=== PATIENT | female | born 1980 | race Caucasian/White ===

== ENCOUNTER → 2023-05-07 | Emergency (ER) | payer OTHER, SELFPAY ==
--- NOTE | 2023-05-07 22:07 | RAD REPORT ---
EXAM DESCRIPTION: RAD - Femur Left - 05/07/2023 9:45 pm CLINICAL HISTORY: PAIN COMPARISON: No comparisons TECHNIQUE: Left femur, 2 views. FINDINGS: No fracture is identified. There is no dislocation or periosteal reaction noted. No acute or suspicious bony finding. IMPRESSION: Negative left femur examination.
--- NOTE | 2023-05-07 23:16 | ER ---
Nurse's Notes [facility] Name: Luda Perdomo Age: 42 yrs Sex: Female : 1980 Arrival Date: 05/07/2023 Time: 20:20 Bed 12 Private MD: Diagnosis: Pain in left leg;Fall on same level from slipping, tripping and stumbling without subsequent striking against object Presentation: 05/07 20:57 Chief complaint: Patient states: fell while walking dogs today around 1730 hit concrete km8 and hurting left thigh; abrasions noted to left elbow and left lower leg. Coronavirus screen: Client denies travel out of the [place] in the last 14 days. Ebola Screen: No symptoms or risks identified at this time. Initial Sepsis Screen: Does the patient meet any 2 criteria? HR > 90 bpm. No. Patient's initial sepsis screen is negative. Does the patient have a suspected source of infection? No. Patient's initial sepsis screen is negative. Risk Assessment: Do you want to hurt yourself or someone else? Patient reports no desire to harm self or others. Onset of symptoms was May 07, 2023 at 17:30. 20:57 Method Of Arrival: Ambulatory km8 20:57 Acuity: DOMINIQUE 3 km8 Triage Assessment: 21:00 General: Appears in no apparent distress. uncomfortable, Behavior is calm, cooperative, km8 appropriate for age. Pain: Complains of pain in left thigh Pain currently is 8 out of 10 on a pain scale. EENT: No signs and/or symptoms were reported regarding the EENT system. Neuro: Level of Consciousness is awake, alert, obeys commands, Oriented to person, place, time, situation. Cardiovascular: Denies chest pain, shortness of breath. Respiratory: Airway is patent Respiratory effort is even, unlabored, Respiratory pattern is regular, symmetrical. GI: No signs and/or symptoms were reported involving the gastrointestinal system. : No signs and/or symptoms were reported regarding the genitourinary system. Derm: Skin is intact, Skin is dry, Skin is pink, warm \T\ dry. normal, Skin temperature is warm abrasions to left elbow and left lower leg. Musculoskeletal: Circulation, motion, and sensation intact. Reports pain in left leg. 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 Historical: - Allergies: 21:00 No Known Allergies; km8 - Home Meds: 21:00 None [Active]; km8 - PMHx: 21:00 None; 8 - PSHx: 21:00 tubal ligation; km8 - Immunization history:: Client reports having NOT received the Covid vaccine. Flu vaccine is not up to date. - Social history:: Smoking status: Patient reports the use of cigarette tobacco products, smokes one pack cigarettes per day. Patient uses alcohol, occasionally. street drugs, marijuana. Screenin:15 [facility] ED Fall Risk Assessment (Adult) History of falling in the last 3 months, vc1 including since admission No falls in past 3 months (0 pts) Confusion or Disorientation No (0 pts) Intoxicated or Sedated No (0 pts) Impaired Gait Yes (1 pt) Mobility Assist Device Used No (0 pt) Altered Elimination No (0 pt) Score/Fall Risk Level 0 - 2 = Low Risk Oriented to surroundings, Maintained a safe environment, Educated pt \T\ family on fall prevention, incl call for assistance when getting out of bed. Abuse screen: Denies threats or abuse. Nutritional screening: No deficits noted. Tuberculosis screening: No symptoms or risk factors identified. Assessment: 20:51 General: name called in waiting room; no answer x2. [facility] 23:21 Reassessment: No changes from previously documented assessment. Patient and/or family vc1 updated on plan of care and expected duration. Pain level reassessed. Patient is alert, oriented x 3, equal unlabored respirations, skin warm/dry/pink. Pt did not want to wait on discharge paperwork and left before signing. Vital Signs: 20:57 BP 127 / 100; Pulse 105; Resp 18; Temp 97.4(IR); Pulse Ox 100% on R/A; Weight 65.77 kg 8 (R); Height 5 ft. 9 in. (R); Pain 8/10; 20:57 Body Mass Index 21.41 (65.77 kg, 175.26 cm) [facility] 20:57 Pain Scale: Adult [facility] ED Course: 20:30 Patient arrived in ED. ag3 20:31 [facility]-C [facility] kb 20:31 Cordell Yang MD is Attending Physician. kb 20:52 Flori Awan FNP-C is [facility] kb 20:52 Cordell Yang MD is Attending Physician. kb 21:00 Triage completed. km8 21:00 Arm band placed on right wrist. km8 21:46 Femur Left XRAY In Process Unspecified. EDMS 23:21 Medina Vu, RN is Primary Nurse. vc1 23:22 No provider procedures requiring assistance completed. Patient did not have IV access vc1 during this emergency room visit. Administered Medications: No medications were administered Medication: 23:22 VIS not applicable for this client. vc1 Outcome: 23:16 Discharge ordered by . kb 23:22 Discharged to home ambulatory, vc1 23:22 Condition: good 23:22 Discharge instructions given to patient, Instructed on discharge instructions, follow up and referral plans. Demonstrated understanding of instructions, follow-up care, 23:22 Patient left the ED. vc1 Signatures: Dispatcher [employer] EDKY Flori Awan FNP-C FNP-CkGale Hernandez ag3 Medina Vu, RN RN vc1 Galilea Lizama RN RN km8
--- NOTE | 2023-05-07 23:17 | EDPHYS ---
Physician Documentation [facility] Name: Luda Perdomo Age: 42 yrs Sex: Female : 1980 Arrival Date: 05/07/2023 Time: 20:20 Bed 12 Private MD: ED Physician Cordell Yang HPI: 05/07 23:19 This 42 yrs old Female presents to ER via Ambulatory with complaints of Leg Pain. kb 23:19 Pt reports she was walking her 2 big dogs and they pulled her down. Reports pain to kb left lateral thigh and abrasion to left elbow. 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 Flu vaccine is not up to date. - Social history:: Smoking status: Patient reports the use of cigarette tobacco products, smokes one pack cigarettes per day. Patient uses alcohol, occasionally. street drugs, marijuana. ROS: 23:16 Constitutional: Negative for fever, chills, and weight loss, kb 23:16 MS/extremity: Positive for pain, of the left quadriceps, 23:16 Skin: Positive for abrasion(s), of the left elbow and left leg, 23:16 All other systems are negative, Exam: 23:16 Constitutional: This is a well developed, well nourished patient who is awake, alert, kb and in no acute distress. Head/Face: Normocephalic, atraumatic. ENT: Moist Mucous membranes Cardiovascular: Regular rate Respiratory: Respirations even and unlabored. No increased work of breathing. Talking in full sentences Abdomen/GI: Soft, non-tender. No distention Neuro: Awake and alert, GCS 15, oriented to person, place, time, and situation. Moves all extremities. Normal gait. 23:16 Musculoskeletal/extremity: Extremities: grossly normal except: noted in the left quadriceps: pain, tenderness, ROM: intact in all extremities, Circulation is intact in all extremities. Sensation intact. Weight bearing: able to fully bear weight, 23:16 Skin: injury, abrasion(s), small abrasion noted, of the left elbow and left leg, Vital Signs: 20:57 BP 127 / 100; Pulse 105; Resp 18; Temp 97.4(IR); Pulse Ox 100% on R/A; Weight 65.77 kg 8 (R); Height 5 ft. 9 in. (R); Pain 8/10; 20:57 Body Mass Index 21.41 (65.77 kg, 175.26 cm) [facility] 20:57 Pain Scale: Adult km8 MDM: 20:36 Patient medically screened. kb 23:18 Differential diagnosis: contusion, fracture, abrasion. Data reviewed: vital signs, kb nurses notes. Counseling: I had a detailed discussion with the patient and/or guardian regarding the historical points, exam findings, and any diagnostic results supporting the discharge/admit diagnosis, radiology results, the need for outpatient follow up, a family practitioner, to return to the emergency department if symptoms worsen or persist or if there are any questions or concerns that arise at home. 05/07 20:57 Order name: Femur Left XRAY; Complete Time: 22:08 kb Administered Medications: No medications were administered Disposition Summary: 05/07/23 23:16 Discharge Ordered Notes: Location: Home kb Condition: Stable kb Diagnosis - Pain in left leg kb - Fall on same level from slipping, tripping and stumbling without subsequent kb striking against object Discharge Instructions: - Discharge Summary Sheet kb - Musculoskeletal Pain kb Forms: - Medication Reconciliation Form kb - Thank You Letter kb - Antibiotic Education kb - Prescription Opioid Use kb - Patient Portal Instructions kb - Leadership Thank You Letter kb Signatures: Dispatcher [employer] Flori Cagle, RACHEL KHAN-Galilea Garcia, RN RN km8
[2023-05-08 02:12] VITALS: BP 127/100; TEMP 97.4; O2SAT 100
== END ==
LOC: ER 20:20
DX: M79.605 Pain in left leg (principal); W01.0XXA Fall on same level from slipping, tripping and stumbling without subsequent striking against object, initial encounter
CPT/HCPCS: 99282

== ENCOUNTER 2023-12-28 16:22 | Emergency (ER) | payer SELFPAY ==
--- NOTE | 2023-12-28 19:07 | RAD REPORT ---
EXAM DESCRIPTION: Shoulder Right 2 View - 12/28/2023 5:31 pm CLINICAL HISTORY: PAIN COMPARISON: No comparisons TECHNIQUE: Internal and external rotation views of the right shoulder were obtained. FINDINGS: There is no fracture or dislocation. AC joint is normal in appearance. No acute or suspici ous findings. IMPRESSION: Negative two-view right shoulder examination.
--- NOTE | 2023-12-28 19:10 | EDPHYS ---
Physician Documentation [facility] Name: Luda Perdomo Age: 43 yrs Sex: Female : 1980 Arrival Date: 12/28/2023 Time: 16:22 Bed DX3 Private MD: ED Physician Brice Medina HPI: 12/27 17:03 This 43 yrs old Female presents to ER via Ambulatory with complaints of Fall Injury, sb4 Shoulder Pain. 17:03 Details of fall: The patient fell from an upright position, while walking. Onset: The sb4 symptoms/episode began/occurred last night. Associated injuries: The patient sustained anterior aspect of right shoulder. The patient has not experienced similar symptoms in the past. The patient has not recently seen a physician. 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 - Infectious Disease History:: Denies. - Social history:: Smoking status: Patient reports the use of cigarette tobacco products, smokes one-half pack cigarettes per day. ROS: 17:03 Constitutional: Negative for fever, chills, and weight loss, sb4 17:03 MS/extremity: Positive for injury or acute deformity, decreased range of motion, pain, tenderness, of the anterior aspect of right shoulder, 17:03 All other systems are negative, Exam: 17:03 Constitutional: This is a well developed, well nourished patient who is awake, alert, sb4 and in no acute distress. Head/Face: Normocephalic, atraumatic. Eyes: Extra-ocular motions intact. Periorbital areas with no swelling, redness, or edema. ENT: Mucous membranes moist. Skin: Warm, dry with normal turgor. Normal color with no rashes, no lesions, and no evidence of cellulitis. 17:03 Musculoskeletal/extremity: ROM: limited active range of motion due to pain, limited passive range of motion due to pain, Circulation is intact in all extremities. Pulses: are normal with no appreciated deficits, Perfusion: the extremity is normally perfused throughout, Sensation intact. Vital Signs: 16:41 BP 132 / 79; Pulse 82; Resp 16; Temp 98.7; Pulse Ox 96% ; db MDM: 16:27 Patient medically screened. sb4 19:08 Data reviewed: vital signs, nurses notes, radiologic studies, and as a result, I will sb4 discharge patient. Counseling: I had a detailed discussion with the patient and/or guardian regarding the historical points, exam findings, and any diagnostic results supporting the discharge/admit diagnosis, radiology results, to return to the emergency department if symptoms worsen or persist or if there are any questions or concerns that arise at home. 12/27 16:44 Order name: Shoulder Right (2 View) XRAY; Complete Time: 19:08 sb4 12/27 16:44 Order name: Shoulder Immobilizer; Complete Time: 20:07 sb4 Administered Medications: 20:07 Drug: Hydrocodone-Acetaminophen PO (7.5 mg-325 mg) 1 tabs PO once Route: PO; vc1 20:07 Follow up: Response: Medication administered at discharge. vc1 Disposition Summary: 12/28/23 19:09 Discharge Ordered Notes: Location: Home sb4 Problem: new sb4 Symptoms: have improved sb4 Condition: Stable sb4 Diagnosis - Sprain of right acromioclavicular joint, initial encounter sb4 Followup: sb4 - With: Austin Gann MD - When: As needed - Reason: Recheck today's complaints, Re-evaluation by your physician Discharge Instructions: - Discharge Summary Sheet sb4 - Shoulder Sprain sb4 Forms: - Work release form sb4 - Patient Portal Instructions sb4 - Leadership Thank You Letter sb4 Prescriptions: - meloxicam 7.5 mg Oral tablet - take 1 tablet ORAL route daily; 14 tablet; Refills: 0, Product Selection sb4 Permitted Signatures: [facility] EDMedina Worthy RN RN vc1 Ann Solaon RN RN Geeta Fitzpatrick PA-C PA-C sb4 Corrections: (The following items were deleted from the chart) 16:44 16:44 Shoulder Right 2 View+[email or web address] ordered. EDMS EDMS
--- NOTE | 2023-12-28 19:10 | ER ---
Nurse's Notes [facility] Name: Luda Perdomo Age: 43 yrs Sex: Female : 1980 Arrival Date: 12/28/2023 Time: 16:22 Bed DX3 Private MD: Diagnosis: Sprain of right acromioclavicular joint, initial encounter Presentation: 12/27 16:41 Chief complaint: Patient states: LAST NIGHT STATES WAS WALKING DOG AND DOG RAN OFF AND db PULLED LEFT ARM. STATES SHOULDER IS STIFF UNABLE TO MOVE UP AND DOWN. COMPLAINS OF TINGLING IN WRIST. Coronavirus screen: Client denies travel out of the [place] in the last 14 days. At this time, the client does not indicate any symptoms associated with coronavirus-19. Ebola Screen: Patient negative for fever greater than or equal to 101.5 degrees Fahrenheit, and additional compatible Ebola Virus Disease symptoms Patient denies exposure to infectious person. Patient denies travel to an Ebola-affected area in the 21 days before illness onset. No symptoms or risks identified at this time. 16:41 Method Of Arrival: Ambulatory db 20:10 Initial Sepsis Screen: Does the patient meet any 2 criteria? No. Patient's initial vc1 sepsis screen is negative. Does the patient have a suspected source of infection? No. Patient's initial sepsis screen is negative. Risk Assessment: Do you want to hurt yourself or someone else?. Onset of symptoms was December 28, 2023. 20:10 Acuity: DOMINIQUE 3 vc1 Triage Assessment: 16:43 General: Appears in no apparent distress. comfortable, Behavior is calm, cooperative. db Pain: Complains of pain in right arm. Neuro: Level of Consciousness is awake, alert, obeys commands, Oriented to person, place, time, situation. 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 - Infectious Disease History:: Denies. - Social history:: Smoking status: Patient reports the use of cigarette tobacco products, smokes one-half pack cigarettes per day. Screenin:07 [facility] ED Fall Risk Assessment (Adult) History of falling in the last 3 months, vc1 including since admission Yes- single mechanical fall (1 pt) Confusion or Disorientation No (0 pts) Intoxicated or Sedated No (0 pts) Impaired Gait No (0 pts) Mobility Assist Device Used No (0 pt) Altered Elimination No (0 pt) Score/Fall Risk Level 0 - 2 = Low Risk Oriented to surroundings, Maintained a safe environment, Educated pt \T\ family on fall prevention, incl call for assistance when getting out of bed. Abuse screen: Denies threats or abuse. Nutritional screening: No deficits noted. Tuberculosis screening: No symptoms or risk factors identified. Vital Signs: 16:41 BP 132 / 79; Pulse 82; Resp 16; Temp 98.7; Pulse Ox 96% ; db ED Course: 16:24 Patient arrived in ED. im 16:24 Geeta Edge PA-C is PHCP. sb4 16:24 Brice Medina MD is Attending Physician. sb4 16:43 Arm band placed on. Arm band placed on Patient placed in waiting room. EKG completed in db triage. Results shown to MD. 16:56 Radiology exam delayed due to PT NOT FOUND IN ER LOBBY. az 17:33 Shoulder Right (2 View) XRAY In Process Unspecified. EDMS 19:09 Austin Gann MD is Referral Physician. sb4 20:10 Triage completed. vc1 20:10 No provider procedures requiring assistance completed. Patient did not have IV access vc1 during this emergency room visit. 20:11 Sling applied to right arm. vc1 Administered Medications: 20:07 Drug: Hydrocodone-Acetaminophen PO (7.5 mg-325 mg) 1 tabs PO once Route: PO; vc1 20:07 Follow up: Response: Medication administered at discharge. vc1 Medication: 20:11 VIS not applicable for this client. vc1 Outcome: 19:09 Discharge ordered by . sb4 20:11 Discharged to home ambulatory, with significant other, vc1 20:11 Condition: good 20:11 Discharge instructions given to patient, Instructed on discharge instructions, follow up and referral plans. Demonstrated understanding of instructions, follow-up care, 20:12 Patient left the ED. vc1 Signatures: Dispatcher [employer] EDMS Sophie Barron Vanessa RN RN vc1 Ann Solano, RN RN db Geeta Edge, PAKim PA-C sb4 Cele Johnson
[2023-12-28] MEDS ORDERED: HYDROCODONE/APAP 7.5/325 MG TAB ONE (19:56)
[2023-12-28 20:48] VITALS: BP 132/79; TEMP 98.7; O2SAT 96
== END 2023-12-28 20:12 | disposition home or self-care (01) ==
LOC: ER 16:22
DX: S43.51XA Sprain of right acromioclavicular joint, initial encounter (principal); W18.30XA Fall on same level, unspecified, initial encounter; F17.210 Nicotine dependence, cigarettes, uncomplicated